=== PATIENT | male | born 1960 | race Caucasian/White ===

== ENCOUNTER 2025-06-01 09:27 | Inpatient (IN) ==
--- NOTE | 2025-06-01 09:44 | Emergency Department Note ---
Impression & Plan Atrial fibrillation with rapid ventricular response, SIRS without infection or organ dysfunction, Anemia, Thrombocytosis, Acute hyponatremia ED Provider Note NAME: BÁRBARA LIN AGE: 64 SEX: M : 1960 ARRIVES VIA: Ambulance INFORMANT: Patient, EMS ED PROVIDER(S): Joce Ronquillo DO CHIEF COMPLAINT: palpitations HPI: This is a 64-year-old male with the PMHx of CAD s/p CABG (2012), pAfib s/p ablation during cardiac surgery (2012) off anticoagulation, HTN and HLD presenting to [facility] for further evaluation of palpitations. Patient is accompanied by EMS who provide additional history. EMS states the patient has been in atrial fibrillation with RVR. Has been tachycardic. Otherwise hemodynamically stable. Was given IV fluids and route to the hospital. Patient states that he felt he was going into out of atrial fibrillation in the last week. Patient states this has been well-controlled since his ablation in 2012. Patient states he has palpitations and feels shortness of breath. States he has had some cough and congestion. No other complaints at this time. They deny fever or chills. They deny abdominal pain, nausea and vomiting. No urinary complaints. No recent changes in bowel movements. Patient denies recent changes in medications or OTC supplements. Patient offers no other complaints, today. ADDITIONAL HISTORY OBTAINED: Per HPI Chronic Medical/Social Conditions Affecting Care: Per HPI PAST MEDICAL HISTORY: See Below PAST SURGICAL HISTORY: See Below FAMILY HISTORY: See Below SOCIAL HISTORY: See Below HOME MEDICATIONS: See Below ALLERGIES: See Below VITALS: See Below PHYSICAL EXAMINATION: GENERAL: Sitting up in bed, alert, well appearing, well nourished, no distress, non-toxic EYE EXAM: normal conjunctiva. OROPHARYNX: no exudate, no erythema, lips, buccal mucosa, and tongue normal and mucous membranes are moist NECK: supple, no nuchal rigidity, no adenopathy, non-tender LUNGS: Clear to auscultation. Normal chest wall mechanics HEART: no murmurs, tachycardic rate, regular rhythm ABDOMEN: abdomen soft, non-tender, no masses, no rebound or guarding. BACK: Back is symmetrical on inspection and there is no deformity, no midline tenderness, no CVA tenderness. SKIN: no rashes and no bruising. Pale UPPER EXTREMITIES: upper extremities are grossly normal. LOWER EXTREMITIES: No pitting edema. NEURO EXAM: Normal sensorium, GCS 15, normal speech, no gross weakness of arms, no gross weakness of legs. MEDICAL DECISION MAKING: Differential diagnoses includes but not limited to ACS, stable vs unstable angina, dysrhythmia, viral URI, pneumonia, pericarditis, pneumothorax, costochondritis, MSK strain, PE, hypertensive emergency, psychological causes, esophageal reflux, gastritis In summary, this is a 64 year old male who presented with palpitations. Differential as above. Nursing notes and pertinent past medical records reviewed. Vital signs reviewed and the patient is tachycardic but otherwise afebrile and HDS. History and presentation revealed afib free since ablation. His palpitations are related to atrial fibrillation with RVR. No symptoms are consistent with ACS. Doubt PE given compliance with anticoagulation. Physical examination revealed as above. As a result of my initial evaluation, IV access was established and the patient was placed on CCRM. Therapeutics ordered include IVFR. Diagnostics interpreted by me include EKG and cardiac monitoring as listed below: -Cardiac Monitoring: An order was placed for continuous cardiac monitoring. The monitor shows a rate of 120-140s with irregular rhythm. -ECG: Favor narrow complex tachycardia that is consistent with possible atrial fibrillation or flutter. Do not feel that this is necessarily sinus tachycardia. There are rate dependent ST segment changes noted. No significant ST segment changes noted to suggest STEMI. -Repeat ECG: Atrial flutter with RVR at [address] segment changes related to the patient's rate. No ST segment changes to suggest STEMI. Patient completed laboratory studies and imaging. CXR independently interpreted by me reveals no evidence of focal consolidation to suggest pna. No large pneumothorax or pleural effusion. No obvious displaced rib fracture. Results independently interpreted by me are leukocytosis. Mild thrombocytosis. Mild anemia. Hypoalbuminemia ntoed. Hypoosmotic hypotonic hyponatremia present. No significant kidney dysfunction. Normal urinalysis. Normal viral swab. Procalcitonin is not significantly elevated. Unclear etiology of the patient's SIRS response and leukocytosis at this time. Blood cultures were collected. Two troponins in time were noted to be negative and reassuring. Normal EKG in the setting of this making ACS unlikely. Patient does have atrial fibrillation with RVR but I do not feel this needs to be aggressively rate control at this time as it could be reactive to a possible infection. He was managed with IV crystalloid resuscitation as well as cefepime. Patient will be admitted to the hospitalist service for further care. Ultimately, the decision was made to admit the patient for SIRS response with unclear source and atrial fibrillation with RVR. I discussed the case with the hospitalist service via telephone/Tiger[employer] and they are agreeable to admit the patient to their services. Based on the above, including the patient's age, coexisting illnesses, labs, imaging, and exam findings the decision to treat as an inpatient. I discussed the patient with the hospitalist team who recommended admission to their services. They received the medications, treatments, interventions indicated above and their condition remained stable. I discussed my findings with the patient and their family and they understand and agree with the treatment plan. All patient / family questions were answered to their satisfaction. Consults/Care Managements Discussions: Per MDM ER treatment provided: See above Procedures: None Critical Care: None The chart was completed utilizing [employer] Speech voice recognition software. Grammatical errors, random word insertions, pronoun errors, and incomplete sentences are an occasional consequence of this system due to software limitations, ambient noise, and hardware issues. Any formal questions or concerns about the content, text, or information contained within the body of this dictation should be directly addressed to the physician for clarification. Past Med/Surg History Problem List (Updated 06/04/25 @ 18:37 by Joce Ronquillo DO) Acute hyponatremia (Acute) Thrombocytosis (Acute) Anemia (Acute) SIRS without infection or organ dysfunction (Acute) Atrial fibrillation with rapid ventricular response (Acute) Coronary artery disease Atrial flutter Hypothyroidism Leukocytosis Palpitations Status post nasal polypectomy Nasal polyposis Chronic rhinitis Chest pain (Acute 07/23/14) HTN (hypertension) (Acute) Social History Smoking Status: Former smoker Second Hand Exposure: No; Hx Alcohol Use: No Hx Substance Use: No Preferred Language: Kenyan Communication Ability: Effective [employer] Required: No Beliefs That Will Affect Care: None Current Living Situation: Spouse Current Living Situation Comment: home with Feels Safe at Home: Yes Assistive Devices: Denture - Upper, Glasses and Hearing Aid - Bilateral Allergies Allergies Allergy/AdvReac Type Severity Reaction Status Date / Time atorvastatin [From Lipitor] Allergy Unknown Verified 06/01/25 12:09 ezetimibe [From Zetia] Allergy Unknown Verified 06/01/25 12:09 lisinopril Allergy Unknown Verified 06/01/25 12:09 lovastatin [From Mevacor] Allergy Unknown Verified 06/01/25 12:09 nickel Allergy Unknown Verified 06/01/25 12:09 nut - unspecified Allergy Unknown Verified 06/01/25 12:09 pravastatin [From Pravachol] Allergy Unknown Verified 06/01/25 12:09 rosuvastatin [From Crestor] Allergy Unknown Verified 06/01/25 12:09 simvastatin [From Zocor] Allergy Unknown Verified 06/01/25 12:09 Home Meds Home Medications Medication Instructions Recorded Confirmed Lactobacillus acidophilus 1 cap PO DAILY 04/02/24 06/01/25 acetaminophen 500 mg capsule 500 mg PO Q6H PRN Pain 04/02/24 06/01/25 alirocumab 150 mg/mL subcutaneous 150 mg subcut Q14D 04/02/24 06/01/25 pen injector carvedilol 25 mg tablet 12.5 mg PO BID 04/02/24 06/01/25 cholecalciferol (vitamin D3) 25 25 mcg PO DAILY 04/02/24 06/01/25 mcg (1,000 unit) capsule clopidogrel 75 mg tablet 75 mg PO DAILY 04/02/24 06/01/25 diclofenac sodium 1 % topical gel 4 g topical QID PRN Pain 04/02/24 06/01/25 (Aleve (diclofenac)) levothyroxine 150 mcg tablet 150 mcg PO DAILY 04/02/24 06/01/25 losartan 50 mg tablet 50 mg PO BID 04/02/24 06/01/25 nifedipine 90 mg tablet,extended 90 mg PO DAILY 04/02/24 06/01/25 release omega-3 fatty acids [Fish Oil] 2 cap PO DAILY 04/02/24 04/12/25 potassium chloride 20 mEq 20 meq PO BID 04/02/24 06/01/25 tablet,extended release Previous Rx's Medication Instructions Recorded Fish Oil (Highland-3) 4 cap PO DAILY #120 caps 07/24/14 apixaban 5 mg tablet (Eliquis) 5 mg PO BID #60 tabs 06/02/25 Results & Data (ED) Vital Signs Vital Signs - 24 hr 06/01/25 09:32 06/01/25 10:11 06/01/25 10:26 Temperature 36.4 C L Temperature Source Oral Pulse Rate 138 H 138 H Pulse Rate [Right Finger] 137 H Pulse Rhythm [Right Finger] Irregular Pulse Strength [Right Finger] Bounding Respiratory Rate 20 20 Respiratory Effort / Characteristics Non-Labored Non-Labored Respiratory Depth Normal Normal Respiratory Pattern Regular Blood Pressure 103/84 Blood Pressure [Left Arm] 120/93 Blood Pressure Mean 90 Blood Pressure Mean [Left Arm] 102 Pulse Oximetry 99 98 Oxygen Delivery Method Room Air Room Air Sepsis Recent Fever Within 48 Hours No Sepsis New/Unexplained Change in Mental Status No Sepsis Action Taken by Nursing No Action Required Laboratory Data 06/02/25 05:49 06/02/25 05:49 Lab Results 06/01/25 06/01/25 06/01/25 Range/Units 09:40 10:50 11:00 WBC 23.26 H (4.8-10.8) K/ul RBC 3.85 L (4.70-6.10) M/uL Hgb 10.0 L (14.0-18.0) g/dL Hct 30.3 L (42.0-52.0) % MCV 78.7 L (80.0-100.0) fL MCH 26.0 (25.0-34.0) pg MCHC 33.0 (32.0-36.0) g/dL RDW Std Deviation 39.8 (36.4-46.3) fL RDW Coeff of Roberto 13.9 (11.5-14.5) % Plt Count 459 H (130-400) K/uL MPV 8.5 L (9.4-12.4) fL Immature Gran % (Auto) 1.6 % Neut % (Auto) 82.8 % Lymph % (Auto) 9.3 % [place] % (Auto) 6.0 % Eos % (Auto) 0.0 % Baso % (Auto) 0.3 % Neut # (Auto) 19.25 H (1.40-6.50) K/uL Lymph # (Auto) 2.17 (1.20-3.40) K/uL [place] # (Auto) 1.39 H (0.11-0.59) K/uL Eos # (Auto) 0.01 (0.00-0.50) K/uL Baso # (Auto) 0.06 (0.00-0.20) K/uL Immature Gran # (Auto) 0.38 H (0.01-0.20) K/uL PT 12.0 (9.0-12.0) Seconds INR 1.1 (0.9-1.1) APTT 37 H (21-31) Seconds PTT Ratio 1.4 Sodium 127 L (136-145) mmol/L Potassium 4.2 (3.5-5.1) mmol/L Chloride 92 L (98-107) mmol/L Carbon Dioxide 24 (21-32) mmol/L Anion Gap 11 (3-11) BUN 10 (6-23) mg/dl Creatinine 0.52 L (0.6-1.4) mg/dl Est Cr Clr Drug Dosing 164.7 ml/min eGFR 111.86 BUN/Creatinine Ratio 19.2 (10-20) Glucose 131 H (70-99(Fasting)) mg/dl Osmolality 266 L (280-300) mOsm/kg Lactate 1.3 (0.4-2.0) mmol/L Calcium 9.5 (8.6-10.3) mg/dl Magnesium 2.0 (1.7-2.4) mg/dl Total Bilirubin 0.5 (0.2-1.0) mg/dl AST 11 L (13-39) U/L ALT 25 (7-52) U/L Alkaline Phosphatase 142 H (34-104) U/L Troponin I High Sens 16.5 (0-20) pg/ml Total Protein 7.3 (6.0-8.3) gm/dl Albumin 3.3 L (3.4-5.0) gm/dl Globulin 4.0 (2.5-4.0) gm/dl Albumin/Globulin Ratio 0.8 L (0.9-2) Lipase 8 L (11-82) U/L Procalcitonin 0.13 (0-0.5) ng/ml Adenovirus (PCR) Not Detected (NotDetected) B. pertussis DNA (PCR) Not Detected (NotDetected) B.parapertussis DNA PCR Not Detected (NotDetected) C. pneumoniae DNA (PCR) Not Detected (NotDetected) Coronavirus OC43 (PCR) Not Detected (NotDetected) Coronavirus HKU1 (PCR) Not Detected (NotDetected) Coronavirus 229E (PCR) Not Detected (NotDetected) SARS-CoV-2 (PCR) Not Detected (NotDetected) Coronavirus NL63 (PCR) Not Detected (NotDetected) Human Metapneumovir PCR Not Detected (NotDetected) Influenza Type A (PCR) Not Detected (NotDetected) Influenza Type B (PCR) Not Detected (NotDetected) M. pneumoniae (PCR) Not Detected (NotDetected) Parainfluenza 1 (PCR) Not Detected (NotDetected) Parainfluenza 2 (PCR) Not Detected (NotDetected) Parainfluenza 3 (PCR) Not Detected (NotDetected) Parainfluenza 4 (PCR) Not Detected (NotDetected) RSV (PCR) Not Detected (NotDetected) Entero/Rhino (PCR) Not Detected (NotDetected) Administered Medications Discontinued Medications Acetaminophen (Acetaminophen 325 Mg Tab) 650 mg PO Q4H PRN PRN Reason: pain/fever Stop: 07/01/25 11:14 Last Admin: 06/01/25 22:11 Dose: 650 mg Documented By: LORRIE Apixaban (Apixaban 5 Mg Tablet) 5 mg PO BID [facility] Stop: 07/02/25 09:14 Last Admin: 06/02/25 11:21 Dose: 5 mg Documented By: DESTINY Benzocaine/Butamben/Tetracaine HCl (Benzocaine/Tetracain/Butam 50 Appln/5 Gm Can) Confirm Administered Dose 50 appln EXT .STK-MED ONE Stop: 06/02/25 08:03 Last Admin: 06/02/25 09:01 Dose: 50 appln Documented By: SHEREEN Carvedilol (Carvedilol 12.5 Mg Tab) 12.5 mg PO BID [facility] Stop: 07/01/25 20:59 Last Admin: 06/02/25 11:18 Dose: Not Given Documented By: Admin: 06/01/25 19:58 Dose: 12.5 mg Documented By: LORRIE Clopidogrel Bisulfate (Clopidogrel Bisulfate 75 Mg Tab) 75 mg PO DAILY [facility] Stop: 07/02/25 08:59 Last Admin: 06/02/25 11:20 Dose: 75 mg Documented By: DESTINY Diltiazem HCl (Diltiazem Hcl 5 Mg/Ml 5 Ml Vial) 20 mg IV NOW STA Stop: 06/01/25 11:16 Last Admin: 06/01/25 11:37 Dose: 20 mg Documented By: Co-signed By: MOHINDER Heparin Sodium (Porcine) (Heparin Sod 5,000 Unit/0.5 Ml Vial) 5,000 units SQ Q8 RAMESH Stop: 07/01/25 13:59 Last Admin: 06/01/25 14:42 Dose: 5,000 units Documented By: bean Heparin Sodium (Porcine) (Heparin Sod (Porcine) 1000 Unit/Ml) 7,000 units IV NOW ONE Stop: 06/01/25 18:58 Last Admin: 06/01/25 19:56 Dose: 7,000 units Documented By: LORRIE Co-signed By: DUSTIN Heparin Sodium (Porcine) (Heparin Sod (Porcine) 1000 Unit/Ml) 3,000 units IV NOW ONE Stop: 06/02/25 03:17 Last Admin: 06/02/25 04:47 Dose: 3,000 units Documented By: LORRIE Co-signed By: DUSTIN Heparin Sodium/Dextrose (Heparin Iv Adult Wt-Based Standard W/ Initial Bolus Protocol) 1 each IV NOW STA; Protocol Stop: 06/01/25 18:43 Last Admin: 06/01/25 21:56 Dose: 1 each Documented By: LORRIE Parenteral Electrolytes (Plasma-Lyte A Ph 7.4) 500 mls @ 999 mls/hr IV .Q31M ONE Stop: 06/01/25 10:07 Last Infusion: 06/01/25 11:37 Dose: Infused Documented By: Admin: 06/01/25 11:01 Dose: 999 mls/hr Documented By: bean Parenteral Electrolytes (Plasma-Lyte A Ph 7.4) 500 mls @ 999 mls/hr IV .Q31M ONE Stop: 06/01/25 11:10 Last Infusion: 06/01/25 14:06 Dose: Infused Documented By: bean Admin: 06/01/25 11:02 Dose: 999 mls/hr Documented By: bean Cefepime HCl (Maxipime 2000mg) 2,000 mg in 20 mls @ 5 mls/min IV NOW STA; Protocol Stop: 06/01/25 10:50 Last Admin: 06/01/25 11:24 Dose: 5 mls/min Documented By: MR Heparin Sodium/Dextrose (Heparin 16940 Unit/500 Ml D5w) 25,000 units in 500 mls @ 32 mls/hr IV .[id number] [facility]; Protocol Stop: 06/02/25 10:30 Last Titration: 06/02/25 07:20 Dose: 1,600 units/hr, 32 mls/hr Documented By: DESTINY Co-signed By: KRISTA Titration: 06/02/25 06:54 Dose: 1,600 units/hr, 32 mls/hr Documented By: DESTINY Co-signed By: LORRIE Titration: 06/02/25 03:19 Dose: 1,600 units/hr, 32 mls/hr Documented By: LORRIE Co-signed By: DUSTIN Admin: 06/01/25 19:56 Dose: 1,450 units/hr, 29 mls/hr Documented By: LORRIE Co-signed By: DUSTIN Levothyroxine Sodium (Levothyroxine Sodium 150 Mcg Tablet) 150 mcg PO DAILYBB [facility] Stop: 07/02/25 06:29 Last Admin: 06/02/25 06:13 Dose: Not Given Documented By: LORRIE Losartan Potassium (Losartan Potassium 50 Mg Tab) 50 mg PO BID [facility] Stop: 07/01/25 20:59 Last Admin: 06/02/25 11:21 Dose: 50 mg Documented By: Admin: 06/01/25 19:58 Dose: 50 mg Documented By: LORRIE Miscellaneous (Heparin Drip - Stop Order) 1 each N/A TODAY@1030 ONE Stop: 06/02/25 10:31 Last Admin: 06/02/25 11:15 Dose: 1 each Documented By: DESTINY Nifedipine (Nifedipine Extended Rel 30 Mg Tabcr) 90 mg PO DAILY [facility] Stop: 07/02/25 08:59 Last Admin: 06/02/25 11:20 Dose: 90 mg Documented By: DESTINY Imaging Data Radiologist's Impression: Chest X-Ray 06/01/25 09:37 SINGLE VIEW CHEST CLINICAL HISTORY: Chest pain FINDINGS: 2 AP, portable, upright chest radiographs are compared to study dated 07/23/2014. The the patient is status post midline sternotomy. The heart is enlarged noting atherosclerotic calcification of the thoracic aorta. The pulmonary vasculature is noncongested. Emphysema is suspected. There is mild bibasilar scarring/atelectasis. No airspace consolidation or pleural effusion is identified. No pneumothorax is seen. The skeletal structures are osteopenic. There are chronic/healed right-sided rib fractures. IMPRESSION: 1. No acute cardiopulmonary abnormality is identified. 2. Cardiomegaly and suspect emphysema. ACT 112: Negative or not required by law. Electronically signed by: Aime Andrew M.D. 06/01/2025 10:17 AM Discharge Plan Visit Data Chief Complaint: Cardiac Assessment Stated Complaint: TACHYCARDIA ED Provider: Joce Ronquillo Discharge Problem: Atrial fibrillation with rapid ventricular response, SIRS without infection or organ dysfunction, Anemia, Thrombocytosis, Acute hyponatremia Patient Disposition: Admitted As Inpatient Condition: Serious Discharge Instructions Interventions: ED Discharge Assessment Last Done: 06/01/25 13:38
[2025-06-01 10:17] LABS: Hematocrit (blood only) 30.3 % (42.0-52.0); Hemoglobin 10.0 g/dL (14.0-18.0); Immature Granulocytes # (auto) 0.38 K/uL (0.01-0.20); Immature Granulocytes % (auto) 1.6 %; Mean Corpuscular Hemoglobin 26.0 pg (25.0-34.0); Mean Corpuscular Volume 78.7 fL (80.0-100.0); Platelet Count 459 K/uL (130-400); RDW Standard Deviation 39.8 fL (36.4-46.3); Red Blood Count 3.85 M/uL (4.70-6.10); White Blood Count 23.26 K/ul (4.8-10.8)
--- NOTE | 2025-06-01 10:19 | XRay Report ---
SINGLE VIEW CHEST CLINICAL HISTORY: Chest pain FINDINGS: 2 AP, portable, upright chest radiographs are compared to study dated 07/23/2014. The the pa tient is status post midline sternotomy. The heart is enlarged noting atherosclerotic calcification o f the thoracic aorta. The pulmonary vasculature is noncongested. Emphysema is suspected. There is mil d bibasilar scarring/atelectasis. No airspace consolidation or pleural effusion is identified. No pne umothorax is seen. The skeletal structures are osteopenic. There are chronic/healed right-sided rib f ractures. IMPRESSION: 1. No acute cardiopulmonary abnormality is identified. 2. Cardiomegaly and suspect emphysema. ACT 112: Negative or not required by law. Electronically signed by: Aime Andrew M.D. 06/01/2025 10:17 AM
[2025-06-01 10:32] LABS: Alanine Aminotransferase 25.0 U/L (7-52); Albumin Globulin Ratio 0.8 (0.9-2); Albumin Level 3.3 gm/dl (3.4-5.0); Alkaline Phosphatase 142.0 U/L (34-104); Anion Gap 11.0 (3-11); Bilirubin,Total 0.5 mg/dl (0.2-1.0); Blood Urea Nitrogen 10.0 mg/dl (6-23); Calcium 9.5 mg/dl (8.6-10.3); Carbon Dioxide 24.0 mmol/L (21-32); Chloride 92.0 mmol/L (98-107); Creatinine Clr Calc Pharmacy 164.7 ml/min; Globulin 4.0 gm/dl (2.5-4.0); Glucose 131.0 mg/dl (70-99(Fasting)); Lipase 8.0 U/L (11-82); Magnesium 2.0 mg/dl (1.7-2.4); Potassium 4.2 mmol/L (3.5-5.1); Sodium 127.0 mmol/L (136-145); Total Protein 7.3 gm/dl (6.0-8.3)
[2025-06-01 10:43] LABS: INR 1.1 (0.9-1.1); Partial Thromboplastin Time 37 Seconds (21-31); Prothrombin Time 12.0 Seconds (9.0-12.0)
[2025-06-01] MEDS: PLASMA-LYTE A 500 ML IV ONE ×2 (11:01→11:02)
[2025-06-01] MEDS ORDERED: ONDANSETRON INJ 2 MG/ML 2 ML VIAL IV PRN (11:15)
[2025-06-01] MEDS: CEFEPIME 2000MG 2,000 MG/20 ML SYR IV STA (11:24)
[2025-06-01 11:43] LABS: Appearance Urine Clear (Clear); Bacteria Urine Automated None Seen (None Seen); Cast Urine Automated 0-2 /lpf (0-2); Epithelial Cell Urine Auto 0-2 /hpf (0-2); Glucose Urine UA Negative (Negative); RBC Urine Automated 0-2 /hpf (0-2); WBC Urine Automated 0-5 /hpf (0-5)
--- NOTE | 2025-06-01 12:08 | History & Physical Report ---
Date of Service June 01, 2025 Assessment & Plan (1) Palpitations: Plan: -EKG showing tachycardia at 130-140bpm -given IVF in ER -dose of cardizem IV -con't coreg BID -f/u troponin -echo -cardiology consulted (2) Leukocytosis: Plan: -WBC 23K -f/u blood cultures -no obvious source identified -given cefepime dose in ER (3) S/P triple vessel bypass: Plan: -plavix -alirocumab (4) HTN (hypertension): Plan: -losartan -nifedipine (5) Hypothyroidism: Plan: -levothyroxine Plan Heparin SQ for DVT px History of Present Illness Chief Complaint: Palpitations Primary Care Provider: Rafael Dior MD Pt is a 64 y/o male with PMH of CAD s/p CABG/PCI, HTN who presents with palpitations that began this am. Patient denies any chest pain or SOB. No fever or chills. In the ER his EKG showed sinus tachycardia at 137bpm. His WBC 23K. His CXR was negative for any acute pathology. No clear source of infection was identified. Pt was given a dose of cefepime and IVF bolus. His rate remained hansa vated despite fluid resuscitation. He is being admitted for further evaluation of his sinus tachycardia including echo and cardiology consult Allergies Allergy/AdvReac Type Severity Reaction Status Date / Time atorvastatin [From Lipitor] Allergy Unknown Verified 06/01/25 12:09 ezetimibe [From Zetia] Allergy Unknown Verified 06/01/25 12:09 lisinopril Allergy Unknown Verified 06/01/25 12:09 lovastatin [From Mevacor] Allergy Unknown Verified 06/01/25 12:09 nickel Allergy Unknown Verified 06/01/25 12:09 nut - unspecified Allergy Unknown Verified 06/01/25 12:09 pravastatin [From Pravachol] Allergy Unknown Verified 06/01/25 12:09 rosuvastatin [From Crestor] Allergy Unknown Verified 06/01/25 12:09 simvastatin [From Zocor] Allergy Unknown Verified 06/01/25 12:09 Home Medications Medication Instructions Recorded Confirmed Type Fish Oil ([place]-3) 4 cap PO DAILY #120 caps 07/24/14 04/12/25 Rx Lactobacillus acidophilus PO 04/02/24 04/12/25 History acetaminophen 500 mg capsule 500 mg PO Q6H PRN 04/02/24 04/12/25 History alirocumab 150 mg/mL subcutaneous 150 mg subcut Q14D 04/02/24 04/12/25 History pen injector carvedilol 25 mg tablet 12.5 mg PO BID 04/02/24 04/12/25 History cholecalciferol (vitamin D3) 25 25 mcg PO DAILY 04/02/24 04/12/25 History mcg (1,000 unit) capsule clopidogrel 75 mg tablet 75 mg PO DAILY 04/02/24 04/12/25 History diclofenac sodium 1 % topical gel 4 g topical QID PRN 04/02/24 04/12/25 History (Aleve (diclofenac)) hydrochlorothiazide 25 mg tablet 12.5 mg PO DAILY 04/02/24 04/12/25 History levothyroxine 150 mcg tablet 150 mcg PO DAILY 04/02/24 04/12/25 History lidocaine HCl topical PRN 04/02/24 04/12/25 History losartan 50 mg tablet 50 mg PO BID 04/02/24 04/12/25 History nifedipine 90 mg tablet,extended 90 mg PO DAILY 04/02/24 04/12/25 History release omega-3 fatty acids [Fish Oil] 2 cap PO 04/02/24 04/12/25 History potassium chloride 20 mEq 20 meq PO BID 04/02/24 04/12/25 History tablet,extended release sodium chloride, sodium ea .Route 04/02/24 04/12/25 History bicarb-nasal rinse squeeze bottle with packet (Neilmed Sinus Rinse Complete with packet) azelastine 137 mcg (0.1 %) nasal 2 spray intranasal BID PRN nasal 04/08/24 04/12/25 Rx spray congestion #30 mL fluticasone propionate 50 2 spray intranasal DAILY #16 grams 04/08/24 04/12/25 Rx mcg/actuation nasal spray,suspension ipratropium bromide 21 mcg (0.03 2 spray intranasal TID PRN 04/08/24 04/12/25 Rx %) nasal spray postnasal drip #30 mL semaglutide (weight loss) 1 mg/0.5 1 mg subcut Q7D 04/12/25 04/12/25 History mL subcutaneous pen injector (Wegovy) Past Med/Surg History Problem List (Updated 06/01/25 @ 12:31 by Maurice Fernández MD) Hypothyroidism Leukocytosis Palpitations Status post nasal polypectomy Nasal polyposis Chronic rhinitis Chest pain (Acute 07/23/14) HTN (hypertension) (Acute) Social History Feels Safe at Home: Yes Review of Systems Review of Systems: CONST: Negative for fever, body aches and chills. HENT: Negative for neck pain/stiffness, headache, congestion, sore throat, swelling. EYES: Negative for discharge/pain or vision changes. RESP: Negative for cough/hemoptysis and shortness of breath. CV: Negative chest pain, difficulty breathing, +palpitations. ABD: Negative pain, nausea, vomiting. : Negative increase frequency, dysuria, blood in urine or stool. MUSC: Negative for muscle aches, edema. SKIN: Negative rash, lesions/sores. NEURO: Negative headache, dizziness, weakness. Physical Exam Physical Exam: GENERAL APPEARANCE NAD, activity normal for age, well developed/ well nourished, no cyanosis, pallor, or diaphoresis. EYES lids/conjunctiva normal. EARS/NOSE/THROAT Mucous membranes moist, nares normal, lips/teeth normal uvula midline without oral pharyngeal erythema, exudate or swelling TMs normal bilaterally. No lymphangitis/lymphedema. HEAD/NECK normocephalic atraumatic, no facial trauma, neck is supple. RESPIRATORY respiratory effort normal, speaks in full sentences, no tripod p osition, no accessory muscle use. Lungs clear to auscultation without rhonchi, wheezes, rales CARDIAC Regular rate and rhythm, no edema. ABDOMINAL Soft, ND/NT. No evidence of fluid wave. No pulsatile masses on exam, rebound tenderness, Cuevas sign or pain over Mcburney's point. MUSCLES/EXTREMITIES No abnormal range of motion, no swelling. SKIN Warm, pink and dry. No rashes, dermatoses, petechiae or lesions. NEUROLOGICAL Speech is clear and appropriate. Normal level of consciousness. Gait and coordination are normal. 5/5 strength in all extremities. PSYCH Normal mood and affect. Judgement/competence is appropriate Results & Data Results & Data Vital Signs (Past 12 Hours) Vital Signs Temp Pulse Pulse Resp BP BP Pulse Ox 06/01/25 11:32 137 H 18 110/85 99 06/01/25 10:26 138 H 06/01/25 10:11 137 H 20 120/93 98 06/01/25 09:32 36.4 C L 138 H 20 103/84 99 O2 Del Method 06/01/25 11:32 Room Air 06/01/25 10:26 06/01/25 10:11 Room Air 06/01/25 09:32 Room Air PG Care Time/CCT Total # of Minutes Spent Total Time Spent with Patient: Total time spent is greater than 50% in coordination of care (as documented) at patient's floor/unit and/or counseling patient: Coding Level of Care Code 05304 INT INP/OBS CARE 2/55MIN Diagnoses Palpitations R00.2 Leukocytosis D72.829 S/P triple vessel bypass Z95.1 HTN (hypertension) I10 Hypothyroidism E03.9
[2025-06-01 12:09] LABS: Chlamydia pneumoniae PCR Not Detected (NotDetected); Coronavirus 229E PCR Not Detected (NotDetected); Coronavirus CoV-2 (COVID19)PCR Not Detected (NotDetected); Coronavirus HKU1 PCR Not Detected (NotDetected); Coronavirus NL63 PCR Not Detected (NotDetected); Coronavirus OC43PCR Not Detected (NotDetected); Human Metapneumovirus PCR Not Detected (NotDetected); Parainfluenza Virus 1 PCR Not Detected (NotDetected); Parainfluenza Virus 2 PCR Not Detected (NotDetected); Parainfluenza Virus 3 PCR Not Detected (NotDetected); Parainfluenza Virus 4 PCR Not Detected (NotDetected); Respiratory Syncytial VirusPCR Not Detected (NotDetected); Rhinovirus/Enterovirus PCR Not Detected (NotDetected)
[2025-06-01] MEDS: HEPARIN SOD 5,000 UNIT/0.5 ML VIAL SQ SCH (14:42)
--- NOTE | 2025-06-01 15:54 | XCELERA ---
[id number]
--- NOTE | 2025-06-01 16:56 | Cardiology Consultation ---
Date of Consultation June 01, 2025 Assessment & Plan (1) Atrial flutter: (2) Coronary artery disease: Plan 1. Atrial flutter: Carotid massage allowed for a brief pause in the ventricular response identifying discrete flutter waves. The fact that his rate is constant is also indicative of a reentrant mechanism. He did report having a "ablation" done at the time of his bypass surgery quite remotely. Possibly the substrate for this atrial flutter. He does not have significant valvular heart disease or give a history consistent with obstructive sleep apnea. In any event, this is unlikely to resolve spontaneously. While he does report noticing the palpitations last evening, I think the safest option would be to perform a transesophageal echocardiogram and subsequent cardioversion. I discussed this with the patient and his family and we will plan on pursuing this tomorrow. He will need anticoagulation before hand and we can give him a dose of Eliquis tonight or start a heparin infusion. He will need to be on anticoagulation subsequently as well for at least 4 weeks. We discussed more definitive options for treatment of atrial flutter in the outpatient setting. 2. Coronary artery disease: Patient apparently underwent three-vessel bypass in 2011. He required percutaneous intervention on 2 occasions subsequently due to graft failure. He should continue aggressive secondary prevention with purulent and clopidogrel. History of Present Illness Reason for Consultation: Tachycardia Requesting Physician: Jolene Attending Physician: Maurice Fernández MD History of Present Illness Patient is a 64-year-old gentleman with an extensive cardiovascular history to include coronary artery disease status post both surgical and percutaneous revascularization, remote history of atrial fibrillation and pulmonary embolus who presented to the hospital via ambulance for hypotension and tachycardia. It seems that the patient has not been feeling well for some time. His main concern is lassitude, fatigue, poor sleep and constipation. He was undergoing a workup and presented for routine laboratory work today when he was noted to have elevated heart rate. Patient states that he did awaken early this morning with an episode of tachycardia that he felt was similar to old episodes of atrial fibrillation. Some minor chest pressure associated with the activity, and some minor dyspnea. No significant dizziness or lightheadedness. Prior to development of his current constitutional symptoms the patient reported being active on a routine basis. He has a rowing machine that he uses frequently. He is also able to walk 5000 steps daily. In general he does not have symptoms with that type of activity. He does not experience angina in some time. He is not limited by dyspnea. Allergies Allergy/AdvReac Type Severity Reaction Status Date / Time atorvastatin [From Lipitor] Allergy Unknown Verified 06/01/25 12:09 ezetimibe [From Zetia] Allergy Unknown Verified 06/01/25 12:09 lisinopril Allergy Unknown Verified 06/01/25 12:09 lovastatin [From Mevacor] Allergy Unknown Verified 06/01/25 12:09 nickel Allergy Unknown Verified 06/01/25 12:09 nut - unspecified Allergy Unknown Verified 06/01/25 12:09 pravastatin [From Pravachol] Allergy Unknown Verified 06/01/25 12:09 rosuvastatin [From Crestor] Allergy Unknown Verified 06/01/25 12:09 simvastatin [From Zocor] Allergy Unknown Verified 06/01/25 12:09 Home Medications Medication Instructions Recorded Confirmed Type Fish Oil ([place]-3) 4 cap PO DAILY #120 caps 07/24/14 06/01/25 Rx Lactobacillus acidophilus 1 cap PO DAILY 04/02/24 06/01/25 History acetaminophen 500 mg capsule 500 mg PO Q6H PRN Pain 04/02/24 06/01/25 History alirocumab 150 mg/mL subcutaneous 150 mg subcut Q14D 04/02/24 06/01/25 History pen injector carvedilol 25 mg tablet 12.5 mg PO BID 04/02/24 06/01/25 History cholecalciferol (vitamin D3) 25 25 mcg PO DAILY 04/02/24 06/01/25 History mcg (1,000 unit) capsule clopidogrel 75 mg tablet 75 mg PO DAILY 04/02/24 06/01/25 History diclofenac sodium 1 % topical gel 4 g topical QID PRN Pain 04/02/24 06/01/25 History (Aleve (diclofenac)) levothyroxine 150 mcg tablet 150 mcg PO DAILY 04/02/24 06/01/25 History losartan 50 mg tablet 50 mg PO BID 04/02/24 06/01/25 History nifedipine 90 mg tablet,extended 90 mg PO DAILY 04/02/24 06/01/25 History release omega-3 fatty acids [Fish Oil] 2 cap PO DAILY 04/02/24 04/12/25 History potassium chloride 20 mEq 20 meq PO BID 04/02/24 06/01/25 History tablet,extended release Patient History Social History Feels Safe at Home: Yes Review of Systems Review of Systems: Per HPI. Constipation, apparently resolved yesterday. Poor appetite and weight loss possibly associated with Ozempic use, lassitude and fatigue, sleep disturbance related to frequent urination. Physical Exam Physical Exam: The patient is alert and oriented. Mood and affect appeared normal. He answered all questions appropriately. HEENT: Pupils are equal and reactive to light and accommodation. Extraocular movements are intact. The sclerae are anicteric. Neuro: Cranial nerves intact Neck: Patient's neck is supple. He has palpable carotid pulses bilaterally without bruits on auscultation. There is no evidence of jugular venous distention. The thyroid is not enlarged. Chest: Well-healed sternotomy scar Lungs: Clear to auscultation bilaterally. He has good air movement without use of accessory muscles. No rales wheezes or rhonchi. Cardiac: Heart demonstrates a regular rhythm. Rapid rate. Normal S1 and S2. No murmurs on examination. Pulses: The patient has palpable radial pulses bilaterally that are equal in intensity Extremities: There was no evidence of hypoperfusion. There is no cyanosis or clubbing. There is no edema. Skin: I did not appreciate any rashes on examination today. Results & Data Vital Signs (Past 12 Hours) Vital Signs Temp Pulse Pulse Resp BP BP Pulse Ox 06/01/25 15:00 140 H 18 116/88 96 06/01/25 14:41 141 H 06/01/25 14:26 140 H 20 116/80 96 06/01/25 12:29 140 H 22 93 06/01/25 11:32 137 H 18 110/85 99 06/01/25 10:26 138 H 06/01/25 10:11 137 H 20 120/93 98 06/01/25 09:32 36.4 C L 138 H 20 103/84 99 O2 Del Method 06/01/25 15:00 Room Air 06/01/25 14:41 06/01/25 14:26 Room Air 06/01/25 12:29 Room Air 06/01/25 11:32 Room Air 06/01/25 10:26 06/01/25 10:11 Room Air 06/01/25 09:32 Room Air Laboratory Results Abnormal Lab Results 06/01/25 06/01/25 06/01/25 09:40 10:50 11:00 WBC 23.26 H RBC 3.85 L Hgb 10.0 L Hct 30.3 L MCV 78.7 L MCH 26.0 MCHC 33.0 RDW Std Deviation 39.8 RDW Coeff of Roberto 13.9 Plt Count 459 H MPV 8.5 L Immature Gran % (Auto) 1.6 Neut % (Auto) 82.8 Lymph % (Auto) 9.3 Gilchrist % (Auto) 6.0 Eos % (Auto) 0.0 Baso % (Auto) 0.3 Neut # (Auto) 19.25 H Lymph # (Auto) 2.17 Gilchrist # (Auto) 1.39 H Eos # (Auto) 0.01 Baso # (Auto) 0.06 Immature Gran # (Auto) 0.38 H PT 12.0 INR 1.1 APTT 37 H PTT Ratio 1.4 Sodium 127 L Potassium 4.2 Chloride 92 L Carbon Dioxide 24 Anion Gap 11 BUN 10 Creatinine 0.52 L Est Cr Clr Drug Dosing 164.7 eGFR 111.86 BUN/Creatinine Ratio 19.2 Glucose 131 H Osmolality 266 L Lactate 1.3 Calcium 9.5 Magnesium 2.0 Total Bilirubin 0.5 AST 11 L ALT 25 Alkaline Phosphatase 142 H Troponin I High Sens 16.5 Total Protein 7.3 Albumin 3.3 L Globulin 4.0 Albumin/Globulin Ratio 0.8 L Lipase 8 L Procalcitonin 0.13 Urine Color Urine Appearance Urine pH Ur Specific [place] Urine Protein Urine Glucose (UA) Urine Ketones Urine Blood Urine Nitrite Urine Bilirubin Urine Urobilinogen Ur Leukocyte Esterase Urine WBC (Auto) Urine RBC (Auto) U Hyaline Cast (Auto) U Epithel Cells (Auto) Urine Bacteria (Auto) Urine Osmolality Ur Random Sodium Urine Comment Adenovirus (PCR) Not Detected B. pertussis DNA (PCR) Not Detected B.parapertussis DNA PCR Not Detected C. pneumoniae DNA (PCR) Not Detected Coronavirus OC43 (PCR) Not Detected Coronavirus HKU1 (PCR) Not Detected Coronavirus 229E (PCR) Not Detected SARS-CoV-2 (PCR) Not Detected Coronavirus NL63 (PCR) Not Detected Human Metapneumovir PCR Not Detected Influenza Type A (PCR) Not Detected Influenza Type B (PCR) Not Detected M. pneumoniae (PCR) Not Detected Parainfluenza 1 (PCR) Not Detected Parainfluenza 2 (PCR) Not Detected Parainfluenza 3 (PCR) Not Detected Parainfluenza 4 (PCR) Not Detected RSV (PCR) Not Detected Entero/Rhino (PCR) Not Detected 06/01/25 06/01/25 11:20 11:36 WBC RBC Hgb Hct MCV MCH MCHC RDW Std Deviation RDW Coeff of Roberto Plt Count MPV Immature Gran % (Auto) Neut % (Auto) Lymph % (Auto) Gilchrist % (Auto) Eos % (Auto) Baso % (Auto) Neut # (Auto) Lymph # (Auto) [place]christ # (Auto) Eos # (Auto) Baso # (Auto) Immature Gran # (Auto) PT INR APTT PTT Ratio Sodium Potassium Chloride Carbon Dioxide Anion Gap BUN Creatinine Est Cr Clr Drug Dosing eGFR BUN/Creatinine Ratio Glucose Osmolality Lactate Calcium Magnesium Total Bilirubin AST ALT Alkaline Phosphatase Troponin I High Sens 16.4 Total Protein Albumin Globulin Albumin/Globulin Ratio Lipase Procalcitonin Urine Color Yellow Urine Appearance Clear Urine pH 8.0 H Ur Specific [place] 1.008 Urine Protein Negative Urine Glucose (UA) Negative Urine Ketones Negative Urine Blood Trace H Urine Nitrite Negative Urine Bilirubin Negative Urine Urobilinogen Negative Ur Leukocyte Esterase Negative Urine WBC (Auto) 0-5 Urine RBC (Auto) 0-2 U Hyaline Cast (Auto) 0-2 U Epithel Cells (Auto) 0-2 Urine Bacteria (Auto) None Seen Urine Osmolality 302 L Ur Random Sodium 98 Urine Comment Adenovirus (PCR) B. pertussis DNA (PCR) B.parapertussis DNA PCR C. pneumoniae DNA (PCR) Coronavirus OC43 (PCR) Coronavirus HKU1 (PCR) Coronavirus 229E (PCR) SARS-CoV-2 (PCR) Coronavirus NL63 (PCR) Human Metapneumovir PCR Influenza Type A (PCR) Influenza Type B (PCR) M. pneumoniae (PCR) Parainfluenza 1 (PCR) Parainfluenza 2 (PCR) Parainfluenza 3 (PCR) Parainfluenza 4 (PCR) RSV (PCR) Entero/Rhino (PCR) Diagnostic Findings Chest x-ray 06/01/2025: No acute cardiopulmonary abnormality Myocardial perfusion study 03/05/2023: No evidence of ischemia. Old inferior infarct. Gated ejection fraction 54%. Echocardiogram 06/01/2025: Normal LV systolic function with ejection fraction of 60 to 65%. Borderline left atrial enlargement. Aortic valve sclerosis without stenosis. PG Care Time/CCT Total # of Minutes Spent Total Time Spent with Patient: Total time spent is greater than 50% in coordination of care (as documented) at patient's floor/unit and/or counseling patient: Coding Level of Care Code 54932 INT INP/OBS CARE 3/75MIN Diagnoses Atrial flutter I48.92 Coronary artery disease I25.10
[2025-06-01] MEDS ORDERED: Heparin IV Adult Wt-Based Standard *NO* INITIAL Bolus Protocol IV STA (18:42)
--- NOTE | 2025-06-01 18:49 | Electrocardiogram Report ---
Test Reason : Blood Pressure : */* mmHG Vent. Rate : 138 BPM Atrial Rate : 138 BPM P-R Int : 132 ms QRS Dur : 88 ms QT Int : 288 ms P-R-T Axes : 72 76 11 degrees QTcB Int : 436 ms Atrial flutter with 2 to 1 block Abnormal ECG Confirmed by Bert Walker ([id number]) on 06/01/2025 6:49:38 PM Referred By: REFERRED SELF Confirmed By: Bert Walker
[2025-06-01] MEDS ORDERED: HEPARIN 25000 UNIT/500 ML D5W 25,000 UNITS/500 ML BAG IV SCH (19:00)
[2025-06-01] MEDS: HEPARIN SOD (PORCINE) 1000 UNIT/ML IV ONE (19:56)
[2025-06-01] MEDS: HEPARIN 25000 UNIT/500 ML D5W 25,000 UNITS/500 ML BAG IV SCH (19:56)
[2025-06-01] MEDS: LOSARTAN POTASSIUM 50 MG TAB PO SCH (19:58)
[2025-06-01] MEDS: Heparin IV Adult Wt-Based Standard w/ INITIAL Bolus Protocol IV STA (21:56)
[2025-06-01] MEDS: ACETAMINOPHEN 325 MG TAB PO PRN (22:11)
[2025-06-02 03:02] LABS: ANTI-Xa, UFH(UnfractionatedHep 0.11 IU/ml (0.3-0.7)
[2025-06-02] MEDS: HEPARIN SOD (PORCINE) 1000 UNIT/ML IV ONE (04:47)
[2025-06-02] MEDS: LEVOTHYROXINE SODIUM 150 MCG TABLET PO SCH (06:13)
[2025-06-02 06:24] LABS: Hematocrit (blood only) 26.2 % (42.0-52.0); Hemoglobin 8.5 g/dL (14.0-18.0); Mean Corpuscular Hemoglobin 25.9 pg (25.0-34.0); Mean Corpuscular Volume 79.9 fL (80.0-100.0); Platelet Count 371 K/uL (130-400); RDW Standard Deviation 40.9 fL (36.4-46.3); Red Blood Count 3.28 M/uL (4.70-6.10); White Blood Count 20.36 K/ul (4.8-10.8)
[2025-06-02 07:05] LABS: ANTI-Xa, UFH(UnfractionatedHep 0.37 IU/ml (0.3-0.7)
[2025-06-02 07:52] LABS: Anion Gap 10.0 (3-11); Calcium 8.7 mg/dl (8.6-10.3); Carbon Dioxide 24.0 mmol/L (21-32); Chloride 93.0 mmol/L (98-107); Potassium 3.9 mmol/L (3.5-5.1); Sodium 127.0 mmol/L (136-145)
--- NOTE | 2025-06-02 07:52 | Anesthesiology Consultation ---
Date of Service June 02, 2025 Assessment & Plan Chart Review Chart Review: Acceptable Risk for Surgery and Patient NOT seen in Pre Admission Testing Consults Requested none ASA ASA4 Proposed Anesthesia Anesthesia Type: MAC History Surgery Operation Date: 06/02/25 08:45 Proposed Procedures p Transesophageal Echo w/Anesthesia - Bert Walker MD s Cardioversion w/Anesthesia Sedation - Bert Walker MD Height/Weight Height: 6 ft 2 in Weight: 81.6 kg Allergies Allergy/AdvReac Type Severity Reaction Status Date / Time atorvastatin [From Lipitor] Allergy Unknown Verified 06/01/25 12:09 ezetimibe [From Zetia] Allergy Unknown Verified 06/01/25 12:09 lisinopril Allergy Unknown Verified 06/01/25 12:09 lovastatin [From Mevacor] Allergy Unknown Verified 06/01/25 12:09 nickel Allergy Unknown Verified 06/01/25 12:09 nut - unspecified Allergy Unknown Verified 06/01/25 12:09 pravastatin [From Pravachol] Allergy Unknown Verified 06/01/25 12:09 rosuvastatin [From Crestor] Allergy Unknown Verified 06/01/25 12:09 simvastatin [From Zocor] Allergy Unknown Verified 06/01/25 12:09 Medications Home Medications Medication Instructions Recorded Confirmed Last Taken Fish Oil ([place]-3) 4 cap PO DAILY #120 caps 07/24/14 06/01/25 Unknown Lactobacillus acidophilus 1 cap PO DAILY 04/02/24 06/01/25 Unknown acetaminophen 500 mg capsule 500 mg PO Q6H PRN Pain 04/02/24 06/01/25 Unknown alirocumab 150 mg/mL subcutaneous 150 mg subcut Q14D 04/02/24 06/01/25 Unknown pen injector carvedilol 25 mg tablet 12.5 mg PO BID 04/02/24 06/01/25 Unknown cholecalciferol (vitamin D3) 25 25 mcg PO DAILY 04/02/24 06/01/25 Unknown mcg (1,000 unit) capsule clopidogrel 75 mg tablet 75 mg PO DAILY 04/02/24 06/01/25 Unknown diclofenac sodium 1 % topical gel 4 g topical QID PRN Pain 04/02/24 06/01/25 Unknown (Aleve (diclofenac)) levothyroxine 150 mcg tablet 150 mcg PO DAILY 04/02/24 06/01/25 Unknown losartan 50 mg tablet 50 mg PO BID 04/02/24 06/01/25 Unknown nifedipine 90 mg tablet,extended 90 mg PO DAILY 04/02/24 06/01/25 Unknown release omega-3 fatty acids [Fish Oil] 2 cap PO DAILY 04/02/24 04/12/25 Unknown potassium chloride 20 mEq 20 meq PO BID 04/02/24 06/01/25 Unknown tablet,extended release Active Medications Generic Name Dose Route Start Last Admin Trade Name Jorge PRN Reason Stop Dose Admin Acetaminophen 650 mg 06/01/25 11:15 06/01/25 22:11 Acetaminophen 325 Mg Tab PO 07/01/25 11:14 650 mg Q4H PRN Administration pain/fever Carvedilol 12.5 mg 06/01/25 21:00 06/01/25 19:58 Carvedilol 12.5 Mg Tab PO 07/01/25 20:59 12.5 mg BID RAMESH Administration Heparin Sodium/Dextrose 25,000 units in 500 mls @ 32 mls/hr 06/01/25 19:00 06/02/25 07:20 Heparin 04143 Unit/500 Ml D5w IV 07/01/25 18:59 1,600 units/hr .[id number] RAMESH 32 mls/hr Titration Protocol 1,600 UNITS/HR Levothyroxine Sodium 150 mcg 06/02/25 06:30 06/02/25 06:13 Levothyroxine Sodium 150 Mcg Tablet PO 07/02/25 06:29 Not Given DAILYBB RAMESH Losartan Potassium 50 mg 06/01/25 21:00 06/01/25 19:58 Losartan Potassium 50 Mg Tab PO 07/01/25 20:59 50 mg BID RAMESH Administration Past Medical History CAD S/P CABG/S/P PTCA stents ASCVD Ao HLD HTN S/P TX COPD/Emphysema Hyponatremia Hx/o PE Hypothyroidism A Fib/A Flutter Exercise / Class Metabolic Activity III < 4 Walking/Shop/Light housework Past Anesthesia History No Hx of Anesthesia Complications and No Family Hx of Anesthesia Complications History of PONV No Hx of PONV and No Hx of Motion Sickness Social History Smoking Status: Former smoker Smoking End Date: 42 years ago Hx Alcohol Use: No Hx Substance Use: No Physical Exam Vital Signs Last Vital Signs Temp 36.6 C 06/02/25 03:35 Pulse 137 H 06/02/25 06:20 Resp 20 06/02/25 03:35 BP 97/68 L 06/02/25 03:35 Pulse Ox 98 06/02/25 03:35 O2 Del Method Room Air 06/02/25 03:35 Testing Laboratory Results 06/02/25 05:49 PT 12.0 Seconds (9.0-12.0) 06/01/25 09:40 INR 1.1 (0.9-1.1) 06/01/25 09:40 APTT 37 Seconds (21-31) H 06/01/25 09:40 Urine Color Yellow 06/01/25 11:20 Urine Appearance Clear (Clear) 06/01/25 11:20 Urine pH 8.0 (4.5-7.5) H 06/01/25 11:20 Ur Specific [place] 1.008 (1.000-1.030) 06/01/25 11:20 Urine Protein Negative (Negative) 06/01/25 11:20 Urine Glucose (UA) Negative (Negative) 06/01/25 11:20 Urine Ketones Negative (Negative) 06/01/25 11:20 Urine Nitrite Negative (Negative) 06/01/25 11:20 Ur Leukocyte Esterase Negative (Negative) 06/01/25 11:20 Urine WBC (Auto) 0-5 /hpf (0-5) 06/01/25 11:20 Urine RBC (Auto) 0-2 /hpf (0-2) 06/01/25 11:20 U Hyaline Cast (Auto) 0-2 /lpf (0-2) 06/01/25 11:20 U Epithel Cells (Auto) 0-2 /hpf (0-2) 06/01/25 11:20 Urine Bacteria (Auto) None Seen (None Seen) 06/01/25 11:20 Electrocardiogram Date: 06/01/25 Findings: + AFIB @ (A Flutter @ 138 w/ 2:1 Block) Chest X-Ray Date: 06/01/25 Findings: + NAD and + atherosclerosis of thoracic aorta COPD/Emphysema;median sternotomy
[2025-06-02 07:57] LABS: Blood Urea Nitrogen 6.0 mg/dl (6-23); Creatinine Clr Calc Pharmacy 166.7 ml/min; Glucose 142.0 mg/dl (70-99(Fasting))
[2025-06-02] MEDS ORDERED: PROPOFOL IV EMULSION 10 MG/ML 20 ML VIAL IV ONE (08:13)
[2025-06-02] MEDS ORDERED: LIDOCAINE 2% 2 ML VIAL/AMP(20MG/ML) INFIL ONE (08:13)
[2025-06-02] MEDS ORDERED: ATROPINE SULFATE 0.1 MG/ML 10ML SYR IV PRN (08:48)
[2025-06-02] MEDS: BENZOCAINE/TETRACAIN/BUTAM 50 APPLN/5 GM CAN EXT ONE (09:01)
--- NOTE | 2025-06-02 09:12 | Cardioversion ---
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 He understood such and wished to proceed. He was taken to the cardiac catheterization suite holding area. A general anesthetic was administered by the Anesthesiology Service. Once appropriately anesthetized, the patient was cardioverted using 30 joules delivered in a biphasic fashion. This returned the patient to sinus rhythm. The patient tolerated procedure well, there were no immediate complications. Patient was neurologically intact subsequent to the procedure. Impression: Successful cardioversion from atrial flutter to normal sinus rhythm Coding Level of Care Code 62909 CARDIOVERSION, ELECTIVE Additional Codes Electrical Cardioversion Report ([id number])
[2025-06-02] MEDS ORDERED: ePHEDrine sulfate 50 MG/5 ML SYR ONE (09:24)
--- NOTE | 2025-06-02 09:24 | Anesthesiology Progress Note ---
Date of Service June 02, 2025 Anesthesia Post Procedure Vital Signs Vital Signs: Temp Pulse Pulse Pulse Resp BP BP 06/02/25 09:10 79 16 06/02/25 08:36 37.1 C 138 H 17 06/02/25 08:35 139 H 18 06/02/25 06:20 137 H 06/02/25 03:35 36.6 C 137 H 20 97/68 L 06/01/25 23:22 36.9 C 06/01/25 22:01 138 H 06/01/25 19:30 06/01/25 18:12 37.1 C 139 H 16 118/78 06/01/25 17:51 140 H 17 06/01/25 17:36 138 H 22 104/78 06/01/25 16:30 140 H 20 110/81 06/01/25 16:30 110/81 06/01/25 15:00 140 H 18 116/88 06/01/25 14:41 141 H 06/01/25 14:26 140 H 20 116/80 06/01/25 12:29 140 H 22 06/01/25 11:32 137 H 18 110/85 06/01/25 10:45 38.4 C H 137 H 18 106/72 06/01/25 10:26 138 H 06/01/25 10:11 137 H 20 120/93 06/01/25 09:32 36.4 C L 138 H 20 103/84 BP Pulse Ox O2 Del Method O2 Flow Rate 06/02/25 09:10 89/58 L 95 Oxymask 7 06/02/25 08:36 100/72 96 Room Air 06/02/25 08:35 100/79 94 Room Air 06/02/25 06:20 06/02/25 03:35 98 Room Air 06/01/25 23:22 06/01/25 22:01 06/01/25 19:30 Room Air 06/01/25 18:12 96 Room Air 06/01/25 17:51 06/01/25 17:36 100 06/01/25 16:30 98 Room Air 06/01/25 16:30 06/01/25 15:00 96 Room Air 06/01/25 14:41 06/01/25 14:26 96 Room Air 06/01/25 12:29 93 Room Air 06/01/25 11:32 99 Room Air 06/01/25 10:45 92 Room Air 06/01/25 10:26 06/01/25 10:11 98 Room Air 06/01/25 09:32 99 Room Air Transfer of Care Handoff Completed per policy Notes Mental Status: alert / awake / arousable Patient Amnestic to Procedure: Yes Nausea / Vomiting: adequately controlled Pain: adequately controlled Airway Patency, RR, SpO2: stable & adequate BP & HR: stable & adequate Hydration State: stable & adequate Anesthetic Complications: no major complications apparent
[2025-06-02 09:38] LABS: Cholesterol 89.0 mg/dl (0-200); HDL Cholesterol 24.0 mg/dl; Triglycerides 107.0 mg/dl (0-150)
--- NOTE | 2025-06-02 09:38 | Discharge Summary ---
Discharge Summary Date of Service June 02, 2025 Principal Dx & Hospital Course #1 = Principal Diagnosis (1) Palpitations: -EKG showing tachycardia at 130-140bpm -given IVF in ER -dose of cardizem IV -con't coreg BID -f/u troponin -echo -cardiology consult appreciated -pt found in to be in aflutter -s/p PAPITO with cardioversion -d/c home on elquis BID for 1 month (2) Leukocytosis: -WBC 23K -f/u blood cultures -no obvious source identified -given cefepime dose in ER -repeat WBC 20k -aleksey stress response, no clear source identified. (3) S/P triple vessel bypass: -plavix -alirocumab (4) HTN (hypertension): -losartan -nifedipine (5) Hypothyroidism: -levothyroxine Plan Heparin SQ for DVT px Admission HPI Per Admitting Provider Pt is a 64 y/o male with PMH of CAD s/p CABG/PCI, HTN who presents with palpitations that began this am. Patient denies any chest pain or SOB. No fever or chills. In the ER his EKG showed sinus tachycardia at 137bpm. His WBC 23K. His CXR was negative for any acute pathology. No clear source of infection was identified. Pt was given a dose of cefepime and IVF bolus. His rate remained elevated despite fluid resuscitation. He is being admitted for further evaluation of his sinus tachycardia including echo and cardiology consult Discharge Exam GENERAL APPEARANCE NAD, activity normal for age, well developed/ well nourished, no cyanosis, pallor, or diaphoresis. EYES lids/conjunctiva normal. EARS/NOSE/THROAT Mucous membranes moist, nares normal, lips/teeth normal uvula midline without oral pharyngeal erythema, exudate or swelling TMs normal bilaterally. No lymphangitis/lymphedema. HEAD/NECK normocephalic atraumatic, no facial trauma, neck is supple. RESPIRATORY respiratory effort normal, speaks in full sentences, no tripod posit ion, no accessory muscle use. Lungs clear to auscultation without rhonchi, wheezes, rales CARDIAC Regular rate and rhythm, no edema. ABDOMINAL Soft, ND/NT. No evidence of fluid wave. No pulsatile masses on exam, rebound tenderness, Cuevas sign or pain over Mcburney's point. MUSCLES/EXTREMITIES No abnormal range of motion, no swelling. SKIN Warm, pink and dry. No rashes, dermatoses, petechiae or lesions. NEUROLOGICAL Speech is clear and appropriate. Normal level of consciousness. Gait and coordination are normal. 5/5 strength in all extremities. PSYCH Normal mood and affect. Judgement/competence is appropriate Discharge Plan Discharge Items Patient Disposition: Home - Self-Care Reason For Visit: PALPITATIONS Discharge Diagnosis: Atrial Flutter Activity: Resume your previous activity Non-emergency contact: Primary Care Provider Call non-emergency contact if: you have any medication questions Follow-up/Referrals: Rafael Hays MD [Primary Care Provider] - Diet: Regular Addtl Attending Provider Instructions: Follow up with cardiology in 2 weeks Pending Studies at Discharge: No Stand-Alone Forms: My [employer], Smoking Cessation Medications and DC Order Prescriptions: New Eliquis 5 mg Tablet 5 mg PO BID Qty: 60 0RF Continued Fish Oil ([place]-3) 1 EA capsule 4 cap PO DAILY Qty: 120 5RF alirocumab 150 mg/mL pen injector 150 mg subcut Q14D carvedilol 25 mg tablet 12.5 mg PO BID Rx Instructions: must administer with a meal/food clopidogrel 75 mg tablet 75 mg PO DAILY diclofenac sodium [Aleve (diclofenac)] 1 % gel 4 g topical QID PRN (Reason: Pain) Rx Instructions: for muscle/joint pain in the hips, knees, and ankles Lactobacillus acidophilus 1 cap PO DAILY levothyroxine 150 mcg tablet 150 mcg PO DAILY losartan 50 mg tablet 50 mg PO BID nifedipine 90 mg tablet extended release 90 mg PO DAILY potassium chloride 20 mEq tablet extended release 20 meq PO BID cholecalciferol (vitamin D3) 25 mcg (1,000 unit) capsule 25 mcg PO DAILY omega-3 fatty acids [Fish Oil] 2 cap PO DAILY Rx Instructions: 2000 mg twice a day acetaminophen 500 mg capsule 500 mg PO Q6H PRN (Reason: Pain) Discharge Orders: Discharge Order (Routine); Ordered 06/02/25 Ordered By: Maurice Fernández Admission Data Admit Date/Time: 06/01/25 11:15 Attending Provider: Maurice Fernández Admit Provider: Maurice Fernández Primary Care Provider: Rafael Hays Other Providers: Maurice Fernández; Bert Walker Hospital Stay Data Consultations 06/01/25 11:06 ED Decision to Admit Stat 06/01/25 11:14 Consult Cardiology Routine Procedures Performed Operation Date: 06/02/25 08:45 Actual Procedures p Echo Transesophageal - Bert Walker MD s Doppler Echo Limited/Follow Up - MD jennifer Lazcano Echo Color Flow - MD jennifer Lazcano Cardioversion - Bert Walker MD Pending Results Patient Have Any Pending Studies at Discharge: No Discharge Instructions Given to Patient (Per Discharging Provider) Follow up with cardiology in 2 weeks Total Time Total Time Spent Total Time Spent (In Minutes): 50 Coding Level of Care Code 66093 INP/OBS DISCH >30 MIN Diagnoses Palpitations R00.2 Leukocytosis D72.829 S/P triple vessel bypass Z95.1 HTN (hypertension) I10 Hypothyroidism E03.9
--- NOTE | 2025-06-02 10:37 | Cardiology Progress Note ---
Date of Service June 02, 2025 Assessment & Plan (1) Atrial flutter: (2) Coronary artery disease: Plan 1. Atrial flutter: He underwent successful cardioversion today. PAPITO did not demonstrate any intra atrial thrombus. However, he would be best served by continued Eliquis for 3 to 4 weeks. He can follow-up with his primary economic forecaster or in our clinic if he desires for a discussion about ongoing management at that time. 2. Coronary artery disease: Patient apparently underwent three-vessel bypass in 2011. He required percutaneous intervention on 2 occasions subsequently due to graft failure. He should continue aggressive secondary prevention with purulent and clopidogrel. Admission and Anticipated Discharge Date Admission Date: June 01, 2025 Subjective Subsequent to his cardioversion the patient stated he was feeling better. Specifically he mentioned improvement in his chest symptoms. No chest pressure or discomfort. No breathing difficulty currently. Review of Systems Review of Systems: Per HPI. Constipation, apparently resolved yesterday. Poor appetite and weight loss possibly associated with Ozempic use, lassitude and fatigue, sleep disturbance related to frequent urination. Physical Exam Physical Exam: The patient is alert and oriented. Mood and affect appeared normal. He answered all questions appropriately. HEENT: Pupils are equal and reactive to light and accommodation. Extraocular movements are intact. The sclerae are anicteric. Neuro: Cranial nerves intact Chest: Well-healed sternotomy scar Lungs: Normal respiratory effort Cardiac: Heart demonstrates a regular rhythm. Normal rate. Pulses: The patient has palpable radial pulses bilaterally that are equal in intensity Extremities: There was no evidence of hypoperfusion. There is no cyanosis or clubbing. There is no edema. Skin: I did not appreciate any rashes on examination today. Results & Data Vital Signs (Past 12 Hours) Vital Signs Temp Pulse Pulse Pulse Resp BP BP 06/02/25 10:15 75 18 106/63 06/02/25 10:00 77 18 97/60 L 06/02/25 09:45 77 18 103/64 06/02/25 09:40 78 18 86/56 L 06/02/25 09:25 78 18 90/60 L 06/02/25 09:10 79 16 89/58 L 06/02/25 08:36 37.1 C 138 H 17 100/72 06/02/25 08:35 139 H 18 100/79 06/02/25 06:20 137 H 06/02/25 03:35 36.6 C 137 H 20 97/68 L 06/01/25 23:22 36.9 C Pulse Ox O2 Del Method O2 Flow Rate 06/02/25 10:15 91 Room Air 06/02/25 10:00 91 Room Air 06/02/25 09:45 91 Room Air 06/02/25 09:40 90 Room Air 06/02/25 09:25 96 Room Air 06/02/25 09:10 95 Oxymask 7 06/02/25 08:36 96 Room Air 06/02/25 08:35 94 Room Air 06/02/25 06:20 06/02/25 03:35 98 Room Air 06/01/25 23:22 Laboratory Results Abnormal Lab Results 06/01/25 06/01/25 06/01/25 09:40 10:50 11:00 WBC RBC Hgb Hct MCV MCH MCHC RDW Std Deviation RDW Coeff of Roberto Plt Count MPV ESR PT 12.0 INR 1.1 APTT 37 H PTT Ratio 1.4 Heparin Anti-Xa, Unfract Sodium Potassium Chloride Carbon Dioxide Anion Gap BUN Creatinine Est Cr Clr Drug Dosing eGFR BUN/Creatinine Ratio Glucose Osmolality 266 L Lactate 1.3 Calcium Troponin I High Sens 16.5 C-Reactive Protein Triglycerides Cholesterol LDL Cholesterol, Calc VLDL Cholesterol, Calc HDL Cholesterol Cholesterol/HDL Ratio Procalcitonin 0.13 Urine Color Urine Appearance Urine pH Ur Specific [place] Urine Protein Urine Glucose (UA) Urine Ketones Urine Blood Urine Nitrite Urine Bilirubin Urine Urobilinogen Ur Leukocyte Esterase Urine WBC (Auto) Urine RBC (Auto) U Hyaline Cast (Auto) U Epithel Cells (Auto) Urine Bacteria (Auto) Urine Osmolality Ur Random Sodium Urine Comment Adenovirus (PCR) Not Detected B. pertussis DNA (PCR) Not Detected B.parapertussis DNA PCR Not Detected C. pneumoniae DNA (PCR) Not Detected Coronavirus OC43 (PCR) Not Detected Coronavirus HKU1 (PCR) Not Detected Coronavirus 229E (PCR) Not Detected SARS-CoV-2 (PCR) Not Detected Coronavirus NL63 (PCR) Not Detected Human Metapneumovir PCR Not Detected Influenza Type A (PCR) Not Detected Influenza Type B (PCR) Not Detected M. pneumoniae (PCR) Not Detected Parainfluenza 1 (PCR) Not Detected Parainfluenza 2 (PCR) Not Detected Parainfluenza 3 (PCR) Not Detected Parainfluenza 4 (PCR) Not Detected RSV (PCR) Not Detected Entero/Rhino (PCR) Not Detected 06/01/25 06/01/25 06/02/25 11:20 11:36 02:10 WBC RBC Hgb Hct MCV MCH MCHC RDW Std Deviation RDW Coeff of Roberto Plt Count MPV ESR PT INR APTT PTT Ratio Heparin Anti-Xa, Unfract 0.11 L Sodium Potassium Chloride Carbon Dioxide Anion Gap BUN Creatinine Est Cr Clr Drug Dosing eGFR BUN/Creatinine Ratio Glucose Osmolality Lactate Calcium Troponin I High Sens 16.4 C-Reactive Protein Triglycerides Cholesterol LDL Cholesterol, Calc VLDL Cholesterol, Calc HDL Cholesterol Cholesterol/HDL Ratio Procalcitonin Urine Color Yellow Urine Appearance Clear Urine pH 8.0 H Ur Specific [place] 1.008 Urine Protein Negative Urine Glucose (UA) Negative Urine Ketones Negative Urine Blood Trace H Urine Nitrite Negative Urine Bilirubin Negative Urine Urobilinogen Negative Ur Leukocyte Esterase Negative Urine WBC (Auto) 0-5 Urine RBC (Auto) 0-2 U Hyaline Cast (Auto) 0-2 U Epithel Cells (Auto) 0-2 Urine Bacteria (Auto) None Seen Urine Osmolality 302 L Ur Random Sodium 98 Urine Comment Adenovirus (PCR) B. pertussis DNA (PCR) B.parapertussis DNA PCR C. pneumoniae DNA (PCR) Coronavirus OC43 (PCR) Coronavirus HKU1 (PCR) Coronavirus 229E (PCR) SARS-CoV-2 (PCR) Coronavirus NL63 (PCR) Human Metapneumovir PCR Influenza Type A (PCR) Influenza Type B (PCR) M. pneumoniae (PCR) Parainfluenza 1 (PCR) Parainfluenza 2 (PCR) Parainfluenza 3 (PCR) Parainfluenza 4 (PCR) RSV (PCR) Entero/Rhino (PCR) 06/02/25 06/02/25 05:49 07:50 WBC 20.36 H RBC 3.28 L Hgb 8.5 L Hct 26.2 L MCV 79.9 L MCH 25.9 MCHC 32.4 RDW Std Deviation 40.9 RDW Coeff of Roberto 14.0 Plt Count 371 MPV 8.5 L ESR 77 H PT INR APTT PTT Ratio Heparin Anti-Xa, Unfract 0.37 Sodium 127 L Potassium 3.9 Chloride 93 L Carbon Dioxide 24 Anion Gap 10 BUN 6 Creatinine 0.51 L Est Cr Clr Drug Dosing 166.7 eGFR 112.52 BUN/Creatinine Ratio 11.8 Glucose 142 H Osmolality Lactate Calcium 8.7 Troponin I High Sens C-Reactive Protein 27.57 H Triglycerides 107 Cholesterol 89 LDL Cholesterol, Calc 44 VLDL Cholesterol, Calc 21 HDL Cholesterol 24 Cholesterol/HDL Ratio 3.7 Procalcitonin Urine Color Urine Appearance Urine pH Ur Specific [place] Urine Protein Urine Glucose (UA) Urine Ketones Urine Blood Urine Nitrite Urine Bilirubin Urine Urobilinogen Ur Leukocyte Esterase Urine WBC (Auto) Urine RBC (Auto) U Hyaline Cast (Auto) U Epithel Cells (Auto) Urine Bacteria (Auto) Urine Osmolality Ur Random Sodium Urine Comment Adenovirus (PCR) B. pertussis DNA (PCR) B.parapertussis DNA PCR C. pneumoniae DNA (PCR) Coronavirus OC43 (PCR) Coronavirus HKU1 (PCR) Coronavirus 229E (PCR) SARS-CoV-2 (PCR) Coronavirus NL63 (PCR) Human Metapneumovir PCR Influenza Type A (PCR) Influenza Type B (PCR) M. pneumoniae (PCR) Parainfluenza 1 (PCR) Parainfluenza 2 (PCR) Parainfluenza 3 (PCR) Parainfluenza 4 (PCR) RSV (PCR) Entero/Rhino (PCR) PG Care Time/CCT Total # of Minutes Spent Total Time Spent with Patient: Total time spent is greater than 50% in coordination of care (as documented) at patient's floor/unit and/or counseling patient: Coding Level of Care Code 64941 SUB INP/OBS CARE 2/35MIN Diagnoses Atrial flutter I48.92 Coronary artery disease I25.10
--- NOTE | 2025-06-02 10:57 | Electrocardiogram Report ---
Test Reason : Blood Pressure : */* mmHG Vent. Rate : 77 BPM Atrial Rate : 77 BPM P-R Int : 132 ms QRS Dur : 94 ms QT Int : 404 ms P-R-T Axes : 66 72 66 degrees QTcB Int : 457 ms Normal sinus rhythm Possible Left atrial enlargement Borderline ECG When compared with ECG of 01-Jun-2025 11:24, (unconfirmed) Sinus rhythm has replaced Atrial flutter Vent. rate has decreased by [address] no longer elevated in Inferior leads T wave inversion no longer evident in Inferior leads T wave inversion less evident in Anterolateral leads Confirmed by Bert Walker ([id number] on 06/02/2025 10:57:39 AM Referred By: REFERRED SELF Confirmed By: Bert Walker
--- NOTE | 2025-06-02 11:03 | Electrocardiogram Report ---
Test Reason : Blood Pressure : */* mmHG Vent. Rate : 136 BPM Atrial Rate : 272 BPM P-R Int : * ms QRS Dur : 90 ms QT Int : 228 ms P-R-T Axes : 84 79 270 degrees QTcB Int : 343 ms Atrial flutter with 2:1 A-V conduction Abnormal ECG When compared with ECG of 01-Jun-2025 09:35, Atrial flutter has replaced Sinus rhythm T wave inversion now evident in Anterior leads Confirmed by Bert Walker ([id number] on 06/02/2025 11:02:58 AM Referred By: REFERRED SELF Confirmed By: Bert Walker
[2025-06-02] MEDS: HEPARIN DRIP - STOP ORDER ONE (11:15)
[2025-06-02] MEDS: NIFEdipine EXTENDED REL 30 MG TABCR PO SCH (11:20)
[2025-06-02] MEDS: CLOPIDOGREL BISULFATE 75 MG TAB PO SCH (11:20)
[2025-06-02] MEDS: APIXABAN 5 MG TABLET PO SCH (11:21)
--- NOTE | 2025-06-02 11:31 | XCELERA ---
[id number]
[2025-06-02 13:16] LABS: ANTI-Xa, UFH(UnfractionatedHep < 0.10 IU/ml (0.3-0.7)
== END 2025-06-02 14:15 | disposition home or self-care (01) | DRG 310 ==
LOC: ED 09:27 → EDINP 11:15 → 2N 13:38
DX: Z79.890 Hormone replacement therapy; E78.5 Hyperlipidemia, unspecified; I25.10 Atherosclerotic heart disease of native coronary artery without angina pectoris; D72.829 Elevated white blood cell count, unspecified; I48.92 Unspecified atrial flutter; E03.9 Hypothyroidism, unspecified; Z79.02 Long term (current) use of antithrombotics/antiplatelets; I10 Essential (primary) hypertension; Z95.1 Presence of aortocoronary bypass graft; I48.0 Paroxysmal atrial fibrillation